=== PATIENT | male | born 1985 | race African-American/Black ===

== ENCOUNTER 2017-07-29 17:17 | Emergency (ER) | payer OTHER ==
[2017-07-29 17:24] VITALS: BP 132/67; PULSE 83; RESP 16; TEMP 97.5
--- NOTE | 2017-07-29 17:50 | ED ---
General Adult HPI - General Chief complaint: Extremity Problem,Nontraumatic Stated complaint: Ankle pain Time Seen by Provider: 07/29/17 17:29 Source: patient, RN notes reviewed, old records reviewed Mode of arrival: ambulatory Limitations: no limitations - History of Present Illness Initial comments: this patient is a 31-year-old male presents today she complaint of right ankle pain. Patient reports that he woke up with some pain and swelling in the right ankle. Denies any trauma that he is aware. He states that he is normally wearing tennis shoes. He states that he has had no previous injuries to this foot or ankle. Denies any peripheral paresthesias. She reports pain with inversion and eversion of the ankle. He states that he does not rub or any trauma or falls to cause the pain. No history of gout.Patient denies any recent fever, chills, shortness of breath, chest pain, back pain, abdominal pain , nausea vomiting, numbness or tingling, dysuria or hematuria, constipation or diarrhea, headaches or visual changes, or any other current symptoms - Related Data Home Medications Medication Instructions Recorded Confirmed Ranitidine HCl [Zantac] 300 mg PO DAILY PRN 07/29/17 07/29/17 Previous Rx's Medication Instructions Recorded Ibuprofen [Motrin] 600 mg PO Q8HR PRN #20 tab 07/29/17 Allergies Allergy/AdvReac Type Severity Reaction Status Date / Time No Known Allergies Allergy Verified 07/29/17 17:33 Review of Systems ROS Statement: Those systems with pertinent positive or pertinent negative responses have been documented in the HPI. ROS Other: All systems not noted in ROS Statement are negative. Past Medical History Past Medical History: No Reported History History of Any Multi-Drug Resistant Organisms: None Reported Past Surgical History: No Surgical Hx Reported Past Psychological History: No Psychological Hx Reported Smoking Status: Former smoker Past Alcohol Use History: None Reported Past Drug Use History: None Reported General Exam - General Exam Comments Initial Comments: 31-year-old male. No distress. Limitations: no limitations General appearance: alert Head exam: Present: atraumatic, normocephalic, normal inspection Eye exam: Present: normal appearance, PERRL, EOMI. Absent: scleral icterus, conjunctival injection, periorbital swelling ENT exam: Present: normal exam, mucous membranes moist Neck exam: Present: normal inspection. Absent: tenderness, meningismus, lymphadenopathy Respiratory exam: Present: normal lung sounds bilaterally. Absent: respiratory distress, wheezes, rales, rhonchi, stridor Cardiovascular Exam: Present: regular rate, normal rhythm, normal heart sounds. Absent: systolic murmur, diastolic murmur, rubs, gallop, clicks GI/Abdominal exam: Present: soft, normal bowel sounds. Absent: distended, tenderness, guarding, rebound, rigid Right Lower Leg exam: Present: normal inspection, full ROM Ankle exam: Present: normal inspection, full ROM, tenderness (over her medial and lateral malleolus.), swelling (minimal swelling.). Absent: abrasion, laceration, ecchymosis, crepitus, dislocation, erythema Foot/Toe exam: Present: normal inspection, full ROM Neurovascular tendon exam: Present: no vascular compromise Gait: observed and normal Back exam: Present: normal inspection Neurological exam: Present: alert, oriented X3, CN II-XII intact Psychiatric exam: Present: normal affect Course Vital Signs 07/29/17 17:23 Temperature 97.5 F L Pulse Rate 83 Respiratory 16 Rate Blood Pressure 132/67 O2 Sat by Pulse 98 Oximetry Medical Decision Making - Medical Decision Making this patient is a 31-year-old male presents today she complaint of right ankle pain. Patient reports that he woke up with some pain and swelling in the right ankle. Denies any trauma that he is aware. He states that he is normally wearing tennis shoes. He states that he has had no previous injuries to this foot or ankle.patient does have some tenderness to palpation over the ankle. No significant swelling or erythema is noted. Discussed possibility of gout. X -rays reviewed this time to show some diffuse or osteoarthritic changes. I'll put the patient on anti-inflammatory medication. Discussed following up with PCP. Patient understands treatment plan will comply. Return parameters were discussed. - Radiology Data Radiology results: report reviewed No fracture or dislocation. Osteoarthritic changes are present. Disposition Clinical Impression: Right ankle pain Disposition: HOME SELF-CARE Condition: Good Instructions: Arthralgia (ED) Additional Instructions: patient is to rest, ice, elevate the extremity. Take anti-inflammatory medication. Return to emergency department if any alarming signs or symptoms occur. Prescriptions: Ibuprofen [Motrin] 600 mg PO Q8HR PRN #20 tab PRN Reason: Pain Referrals: Zan Villalobos MD [Primary Care Provider] - 1-2 days Time of Disposition: 18:07
--- NOTE | 2017-07-29 18:05 | XR ---
Limited right ankle and right foot HISTORY: Right ankle and foot pain 2 views of the right ankle and 3 views of the right foot are submitted No comparisons Bone mineralization, joint spaces and alignment are maintained. Spurring is present at the tibiotalar joint, talonavicular joint. No evident ankle joint effusion. Some spurring and joint space loss pres ent at the first metatarsophalangeal joint. Small ossific density present dorsal and medial to the in terphalangeal joint of the first digit of the right foot. IMPRESSION: No fracture or dislocation. Osteoarthritic changes are present.
== END 2017-07-29 18:28 | disposition home or self-care (01) ==
LOC: EC 17:17
DX: M25.571 Pain in right ankle and joints of right foot (principal); Z87.891 Personal history of nicotine dependence
CPT/HCPCS: 99284

== ENCOUNTER 2017-10-18 15:59 | Emergency (ER) | payer OTHER ==
[2017-10-18] MEDS ORDERED: IBUPROFEN 600 MG TAB PO STA (16:32)
--- NOTE | 2017-10-18 17:05 | ED ---
General Adult HPI - General Chief complaint: Extremity Injury, Upper Stated complaint: Elbow Injury Time Seen by Provider: 10/18/17 16:30 Source: patient, RN notes reviewed Mode of arrival: ambulatory Limitations: no limitations - History of Present Illness Initial comments: 32-year-old male presents to the emergency department for a chief complaint of elbow pain times one day. Patient states he was at work last night when he hit his elbow on a metal bracket. Patient denies scratching or breaking the skin. Patient states he is having sharp pain from his elbow shooting down to his wrist. Patient is also having some tingling in the fingers. Patient has full sensation in the right extremity with light touch. Patient denies any pain in the hand or shoulder of the right extremity. Patient states he did ice the elbow last night but has not taken any ibuprofen. - Related Data Home Medications Medication Instructions Recorded Confirmed Ranitidine HCl [Zantac] 300 mg PO DAILY PRN 07/29/17 07/29/17 Previous Rx's Medication Instructions Recorded Ibuprofen [Motrin] 600 mg PO Q8HR PRN #20 tab 07/29/17 Allergies Allergy/AdvReac Type Severity Reaction Status Date / Time No Known Allergies Allergy Verified 10/18/17 16:09 Review of Systems ROS Statement: Those systems with pertinent positive or pertinent negative responses have been documented in the HPI. ROS Other: All systems not noted in ROS Statement are negative. Past Medical History Past Medical History: No Reported History History of Any Multi-Drug Resistant Organisms: None Reported Past Surgical History: No Surgical Hx Reported Past Psychological History: No Psychological Hx Reported Smoking Status: Current every day smoker Past Alcohol Use History: None Reported Past Drug Use History: None Reported General Exam Limitations: no limitations General appearance: alert, in no apparent distress Head exam: Present: atraumatic, normocephalic, normal inspection Respiratory exam: Present: normal lung sounds bilaterally. Absent: respiratory distress, wheezes, rales, rhonchi, stridor Cardiovascular Exam: Present: regular rate, normal rhythm, normal heart sounds. Absent: systolic murmur, diastolic murmur, rubs, gallop, clicks Extremities exam: Present: full ROM (Full range of motion of the right elbow and right wrist.), tenderness (Tenderness to the lateral condyle of the right elbow. No tenderness to the right wrist or anatomical snuffbox.), normal capillary refill (Refill less than 2 seconds in the right upper extremity.), other (Patient has full sensation of the right extremity on light touch. Patient also has full range of motion of the right extremity. Patient's interventionist strength on the right 4 out of 5.). Absent: joint swelling (No swelling noted of the right elbow or right wrist.) Course Vital Signs 10/18/17 16:06 Temperature 97.4 F L Pulse Rate 92 Respiratory 16 Rate Blood Pressure 167/79 O2 Sat by Pulse 98 Oximetry Medical Decision Making - Medical Decision Making 32-year-old male says the emergency department for chief complaint of elbow pain. Patient states he was at work when he hit his elbow on a metal bracket. Patient denies breaking the skin. Patient states he is having some tingling in the right upper extremity. Patient has full range of motion of the elbow and wrist on the right extremity. Patient has full sensation to light touch on the right upper extremity. Cap refill less than 2 seconds in the right upper extremity and radial pulse 2+. X-ray of the right wrist and elbow reveal no acute fractures or dislocations. Patient will be given the number for orthopedics to follow up if the pain continues. He can take ibuprofen for pain relief [id number], which she has at home. He was also instructed on resting icing and elevating the extremity. He was also told to keep the arm straight as much as possible as bending increases the tingling. Keeping it straight can cause less compression on the nerve due to the inflammation. Disposition Clinical Impression: Elbow pain, right Disposition: HOME SELF-CARE Condition: Good Instructions: RICE Therapy (ED), Elbow Sprain (ED) Additional Instructions: Please take ibuprofen for pain relief. Please rest, ice, and elevate the right elbow as much as possible. Please follow-up with orthopedics or primary care in 1-2 days Referrals: Zan Villalobos MD [Primary Care Provider] - 1-2 days Kanwal Viera PAC [PHYSICIAN FUELS ENGINEER] - 1-2 days Time of Disposition: 18:14
--- NOTE | 2017-10-18 18:04 | XR ---
EXAMINATION TYPE: XR wrist complete RT DATE OF EXAM: 10/18/2017 CLINICAL HISTORY: Right wrist pain after injury TECHNIQUE: Frontal, lateral and oblique images of the right wrist are obtained. Scaphoid view was al so obtained. COMPARISON: None FINDINGS: There is no acute fracture/dislocation evident in the right wrist. The joint spaces in th e right wrist appear within normal limits. The overlying soft tissue appears unremarkable. Well-carlito icated old fracture deformity of the ulnar styloid is seen. IMPRESSION: There is no acute fracture or dislocation in the right wrist.
--- NOTE | 2017-10-18 18:05 | XR ---
EXAMINATION TYPE: XR elbow complete RT DATE OF EXAM: 10/18/2017 CLINICAL HISTORY: Right elbow pain after injury TECHNIQUE: Frontal, lateral and oblique images of the right elbow are obtained. COMPARISON: None FINDINGS: There is no acute fracture/dislocation evident in the right elbow. No abnormal fat pad si gns are seen. The overlying soft tissue appears unremarkable. IMPRESSION: There is no acute fracture or dislocation in the right elbow.
[2017-10-18 18:13] VITALS: BP 123/81; PULSE 94; RESP 18; TEMP 97.6
== END 2017-10-18 18:18 | disposition home or self-care (01) ==
LOC: EC 15:59
DX: M25.521 Pain in right elbow (principal); M25.531 Pain in right wrist; R20.0 Anesthesia of skin; F17.200 Nicotine dependence, unspecified, uncomplicated; W22.8XXA Striking against or struck by other objects, initial encounter; Y99.0 Civilian activity done for income or pay; Y92.69 Other specified industrial and construction area as the place of occurrence of the external cause
CPT/HCPCS: 99283

== ENCOUNTER 2017-11-07 08:39 | Emergency (ER) | payer OTHER ==
[2017-11-07 08:48] VITALS: RESP 18
--- NOTE | 2017-11-07 08:59 | ED ---
General Adult HPI - General Chief complaint: Extremity Injury, Lower Stated complaint: rt foot injury Time Seen by Provider: 11/07/17 08:52 Source: patient, RN notes reviewed Mode of arrival: ambulatory Limitations: no limitations - History of Present Illness Initial comments: Patient 32-year-old male presenting to the emergency room today with a chief complaint of an injury to the right great toe. He states that he was wearing shoes and accidentally dropped a 50 pound weight. He states he saw it coming was trying to get his foot out awake. His admits to a abrasion over the distal aspect of the right great toe. He admits pain locally to this area. He denies any other complaints or symptoms. Patient denies any recent fever, chills, shortness of breath, chest pain, back pain, abdominal pain, nausea or vomiting, headaches or visual changes, or any other complaints. - Related Data Home Medications Medication Instructions Recorded Confirmed Ranitidine HCl [Zantac] 300 mg PO DAILY PRN 07/29/17 11/07/17 Previous Rx's Medication Instructions Recorded Ibuprofen [Motrin] 600 mg PO Q6HR PRN #40 day 11/07/17 Allergies Allergy/AdvReac Type Severity Reaction Status Date / Time No Known Allergies Allergy Verified 11/07/17 08:53 Review of Systems ROS Statement: Those systems with pertinent positive or pertinent negative responses have been documented in the HPI. ROS Other: All systems not noted in ROS Statement are negative. Past Medical History Past Medical History: No Reported History History of Any Multi-Drug Resistant Organisms: None Reported Past Surgical History: No Surgical Hx Reported Past Psychological History: No Psychological Hx Reported Smoking Status: Current every day smoker Past Alcohol Use History: None Reported Past Drug Use History: None Reported General Exam - General Exam Comments Initial Comments: General: The patient is awake and alert, in no distress, and does not appear acutely ill. Neck: The neck is supple Musculoskeletal: Patient does have small abrasion over the distal aspect of the right great toe. There is no active bleeding. Nailbed intact. No evidence for a subungual hematoma. Sensations intact. Pulses 2+. Patient shows good range of motion. Tender palpation distal aspect of the right great toe. No other bony tenderness on exam. Neurological: A&O x 3. CN II-XII intact, There are no obvious motor or sensory deficits. Coordination appears grossly intact. Speech is normal. Skin: Skin is warm and dry and no rashes or lesions are noted. Psychiatric: Normal mood and affect. Limitations: no limitations Course Vital Signs 11/07/17 08:44 Temperature 97.3 F L Pulse Rate 105 H Respiratory 18 Rate Blood Pressure 132/89 O2 Sat by Pulse 96 Oximetry Medical Decision Making - Medical Decision Making Patient's x-rays reviewed does show osteoarthritis of the MTP joint. Does show congenital or old injury. Patient no tenderness to the ankle only tender over the distal first digit of the right foot. Patient does have small abrasion has been cleaned by nursing staff in the emergency room. Patient refused a postop shoe states feels comfortable with scissors that he hasn't home. He is advised to ice elevate follow-up if symptoms are not improving over the next 7-10 days. Disposition Clinical Impression: Contusion of foot, right Disposition: HOME SELF-CARE Condition: Good Instructions: Foot Contusion (ED) Additional Instructions: Please continue to ice elevate the affected area. Please use ibuprofen for pain please follow-up in 7-10 days if symptoms are not improving. Please return to emergency room for any other concerns. Prescriptions: Ibuprofen [Motrin] 600 mg PO Q6HR PRN #40 day PRN Reason: Pain Is patient prescribed a controlled substance at d/c from ED?: No Referrals: Zan Villalobos MD [Primary Care Provider] - 1-2 days Time of Disposition: 09:48
--- NOTE | 2017-11-07 09:28 | XR ---
EXAMINATION TYPE: XR foot complete RT DATE OF EXAM: 11/07/2017 COMPARISON: 07/29/2017 HISTORY: 32-year-old male right foot pain after dropping weight on foot this morning TECHNIQUE: 3 views FINDINGS: Mild degenerative change at the first MTP joint with marginal spurring. There is corticated ossific f ragment along the dorsal medial aspect of the talonavicular joint which was present on prior exam as well. No acute fracture, subluxation, or dislocation. IMPRESSION: 1. Bone fragment along the dorsomedial aspect of the talonavicular joint could represent congenital v ariation with an os supranaviculare or sequela of remote injury. Mild first MTP joint OA. 2. No acute osseous abnormality seen.
[2017-11-07 10:20] VITALS: BP 132/78; PULSE 98; TEMP 97.5
== END 2017-11-07 10:18 | disposition home or self-care (01) ==
LOC: EC 08:39
DX: S90.31XA Contusion of right foot, initial encounter (principal); S90.411A Abrasion, right great toe, initial encounter; F17.200 Nicotine dependence, unspecified, uncomplicated; Z53.29 Procedure and treatment not carried out because of patient's decision for other reasons; W20.8XXA Other cause of strike by thrown, projected or falling object, initial encounter; Y92.009 Unspecified place in unspecified non-institutional (private) residence as the place of occurrence of the external cause
CPT/HCPCS: 99283

== ENCOUNTER 2018-10-02 02:44 | Emergency (ER) | payer OTHER ==
[2018-10-02 02:53] VITALS: BP 143/91; PULSE 94; RESP 18; TEMP 98.3
[2018-10-02] MEDS ORDERED: ACETAMINOPHEN TAB 500 MG TAB PO STA (03:09)
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
== END 2018-10-02 04:20 | disposition home or self-care (01) ==
LOC: EC 02:44
DX: S00.83XA Contusion of other part of head, initial encounter (principal); F17.200 Nicotine dependence, unspecified, uncomplicated; Z91.013 Allergy to seafood; Y00.XXXA Assault by blunt object, initial encounter; Y92.009 Unspecified place in unspecified non-institutional (private) residence as the place of occurrence of the external cause
CPT/HCPCS: 70486; 99283

== ENCOUNTER 2018-10-22 14:40 | Emergency (ER) | payer OTHER ==
[2018-10-22 14:52] VITALS: RESP 18; TEMP 98.2
[2018-10-22] MEDS ORDERED: predniSONE 50 MG TAB PO STA ×2 (15:32→15:48)
[2018-10-22] MEDS ORDERED: methylPREDNISolone SOD SUCCI 125 MG/2 ML VIAL IV STA (15:37)
[2018-10-22] MEDS ORDERED: FAMOTIDINE 20 MG/2 ML VIAL IV STA (15:37)
[2018-10-22] MEDS ORDERED: diphenhydrAMINE 50 MG/ML 1 ML VIAL IVP STA (15:37)
[2018-10-22] MEDS ORDERED: SODIUM CHLORIDE 0.9% 500 ML 500 ML IV STA (15:37)
--- NOTE | 2018-10-22 15:44 | ED ---
General Adult HPI - General Chief complaint: Fall Stated complaint: Ankle injury Time Seen by Provider: 10/22/18 15:13 Source: patient, RN notes reviewed, old records reviewed Mode of arrival: ambulatory Limitations: no limitations - History of Present Illness Initial comments: 33-year-old male patient with no pertinent past medical history presents ED aft er sustaining a fall, ankle injury. Patient ports that he was standing on a chair when the chair slipped and he fell backwards, hitting the plantar aspect of the chair of his lumbar spine and injuring both his ankles. Patient reports that this occurred around 10:30 AM. Patient reports that he has been ambulatory, however has pain in his ankles bilaterally as well as his lower back. Patient ports they took some Tylenol Extra Strength immediately after fall, patient reports that he feels that he experienced some tongue swelling transiently after taking this medication. Patient states that this resolves within approximately 5 minutes. Patient denies any other complaints. Denies any hives, nausea vomiting diarrhea, abdominal pain. Patient does not have a history of ALLERGIC reactions. Patient is currently in no respiratory distress, no angioedema noted. Systemic: Pt denies fatigue, myalgia, fever/chills, rash. Pt denies weakness, night sweats, weight loss. Neuro: Pt denies headache, visual disturbances, syncope or pre-syncope. HEENT: Pt denies ocular discharge or irritation, otalgia, rhinorrhea, pharyngitis or notable lymphadenopathy. Cardiopulmonary: Pt denies chest pain, SOB, heart palpitations, dyspnea on exertion. Abdominal/GI: Pt denies abdominal pain, n/v/d. : Pt denies dysuria, burning w/ urination, frequency/urgency. Denies new onset urinary or bowel incontinence. MSK: Pt denies myalgia, loss of strength or function in extremities. Neuro: Pt denies new onset weakness, paresthesias. - Related Data Home Medications Medication Instructions Recorded Confirmed Ranitidine HCl [Zantac] 300 mg PO DAILY PRN 07/29/17 11/07/17 Previous Rx's Medication Instructions Recorded Ibuprofen [Motrin] 600 mg PO Q6HR PRN #40 day 11/07/17 EPINEPHrine [Epipen 2-Ozzie] 0.3 mg IM ONCE PRN #1 pack 10/22/18 predniSONE 50 mg PO DAILY #4 tab 10/22/18 Allergies Allergy/AdvReac Type Severity Reaction Status Date / Time seafood Allergy Swelling Uncoded 10/22/18 14:52 Review of Systems ROS Statement: Those systems with pertinent positive or pertinent negative responses have been documented in the HPI. ROS Other: All systems not noted in ROS Statement are negative. Past Medical History Past Medical History: No Reported History History of Any Multi-Drug Resistant Organisms: None Reported Past Surgical History: No Surgical Hx Reported Past Psychological History: No Psychological Hx Reported Smoking Status: Current every day smoker Past Alcohol Use History: None Reported Past Drug Use History: None Reported General Exam - General Exam Comments Initial Comments: Constitutional: NAD, AOX3, Pt has pleasant affect. HEENT: NC/AT, trachea midline, neck supple, no lymphadenopathy. Posterior pharynx non erythematous, without exudates. External ears appear normal, without discharge. Mucous membranes moist. Eyes PERRLA, EOM intact. There is no scleral icterus. No pallor noted. No angioedema. Cardiopulmonary: RRR, no murmurs, rubs or gallops, no JVD noted. Lungs CTAB in anterior and posterior marcos. No peripheral edema. Abdominal exam: Abdomen soft and non-distended. Abdomen non-tender to palpation in all 4 quadrants. Bowel sounds active in LLQ. No hepatosplenomegaly. No ecchymosis Neuro: CN II-XII grossly intact. No nuchal rigidity. MSK: Left middle malleolus mildly tender to palpation bilaterally. Lateral distal fibula mildly tender to palpation. Patient able to bear weight with antalgic gait. Left paralumbar region mildly tender to palpation. 5 out of 5 strength quadriceps psoas muscles bilaterally. Patellar and Achilles tendon reflex 2 out of 4 bilaterally. No posterior calf tenderness bilaterally, homans sign negative bilaterally. Posterior tibialis and radial pulse +2 bilaterally. Sensation intact in upper and lower extremities. Full active ROM in upper and lower extremities, 5/5 stregnth. Limitations: no limitations Course Vital Signs 10/22/18 14:49 Temperature 98.2 F Pulse Rate 89 Respiratory 18 Rate Blood Pressure 140/90 O2 Sat by Pulse 97 Oximetry Medical Decision Making - Medical Decision Making 33-year-old male patient with no pertinent past medical history presents ED after sustaining a fall, ankle injury. Patient ports that he was standing on a chair when the chair slipped and he fell backwards, hitting the plantar aspect of the chair of his lumbar spine and injuring both his ankles. Patient reports that this occurred around 10:30 AM. Patient reports that he has been ambulatory, however has pain in his ankles bilaterally as well as his lower back. Patient ports they took some Tylenol Extra Strength immediately after fall, patient reports that he feels that he experienced some tongue swelling transiently after taking this medication. Patient states that this resolves within approximately 5 minutes. Patient denies any other complaints. Denies any hives, nausea vomiting diarrhea, abdominal pain. Patient does not have a history of ALLERGIC reactions. Patient is currently in no respiratory distress, no angioedema noted. Pt VSS, afebrile. Physical exam displayed: Left middle malleolus mildly tender to palpation bilaterally. Lateral distal fibula mildly tender to palpation. Patient able to bear weight with antalgic gait. Left paralumbar region mildly tender to palpation. 5 out of 5 strength quadriceps psoas muscles bilaterally. Patellar and Achilles tendon reflex 2 out of 4 bilaterally. Plain film of right tibia/fibula, lumbar spine, foot and ankle bilaterally did not display any acute process. Patient diagnosis ankle sprain, possible ALLERGIC reaction. Patient to be prescribed 4 days of prednisone for ALLERGIC reaction. Patient will follow up with primary care physician one to days for repeat evaluation. Mihai wrap placed and ankles bilaterally. Patient also provided orthopedic consult for further evaluation symptoms continue. Patient return to ER if condition worsens in any way. Case discussed with Dr. Reed. Disposition Clinical Impression: Fall, Ankle sprain, Allergic reaction caused by a drug Disposition: HOME SELF-CARE Condition: Stable Instructions (If sedation given, give patient instructions): Ankle Sprain (ED), General Allergic Reaction (ED) Additional Instructions: Patient to adhere to previously discussed treatment plan and will take medication(s) as directed. Patient to follow up with PCP in 1-2 days. Patient to return to ED if symptoms do not improve. Please follow-up with primary care provider in 1-2 days. Please return to ER if condition worsens in anyway. Please do not take Tylenol. Please take prednisone for 4 days. Please follow-up with orthopedic consult if symptoms persist. Prescriptions: EPINEPHrine [Epipen 2-Ozzie] 0.3 mg IM ONCE PRN #1 pack PRN Reason: Anaphylaxis predniSONE 50 mg PO DAILY #4 tab Is patient prescribed a controlled substance at d/c from ED?: No Referrals: Zan Villalobos MD [Primary Care Provider] - 1-2 days Kanwal Viera PAC [PHYSICIAN [employer]SERVATION SCIENCE TEACHER] - 1-2 days
[2018-10-22] MEDS ORDERED: FAMOTIDINE 20 MG TAB PO STA (15:48)
[2018-10-22] MEDS ORDERED: diphenhydrAMINE 50 MG CAP PO STA (15:48)
--- NOTE | 2018-10-22 16:47 | XR ---
Right leg HISTORY: Trauma and pain 2 views of the right leg on 3 images Bone mineralization, joint spaces and alignment are maintained. IMPRESSION: No fracture or dislocation.
--- NOTE | 2018-10-22 16:49 | XR ---
Bilateral ankles and bilateral feet HISTORY: Trauma and pain 3 views of each foot, 3 views of each ankle submitted on a total of 12 images. Small ossific density present at the interphalangeal level of the first digit is well-corticated and not felt likely to be acute at the right first digit. Degenerative changes are present at the interta rsal joints. Mild soft tissue swelling at the ankle joints. Bone mineralization, joint spaces and ali gnment are maintained. IMPRESSION: No evident fracture or dislocation of either foot or ankle.
--- NOTE | 2018-10-22 16:51 | XR ---
Lumbar spine HISTORY: Trauma and pain 3 views of the lumbar spine Bone mineralization, joint spaces and alignment are maintained. Lumbar vertebral bodies show preserve d height. Disc spaces are normal. IMPRESSION: No acute fracture or subluxation. Follow-up as indicated.
[2018-10-22 17:59] VITALS: BP 139/79; PULSE 79
== END 2018-10-22 17:34 | disposition home or self-care (01) ==
LOC: EC 14:40
DX: S93.401A Sprain of unspecified ligament of right ankle, initial encounter (principal); S93.402A Sprain of unspecified ligament of left ankle, initial encounter; T50.905A Adverse effect of unspecified drugs, medicaments and biological substances, initial encounter; F17.200 Nicotine dependence, unspecified, uncomplicated; Z91.013 Allergy to seafood; W01.0XXA Fall on same level from slipping, tripping and stumbling without subsequent striking against object, initial encounter
CPT/HCPCS: 73610; 73630; 72100; 73590; 99284; J7512

== ENCOUNTER 2019-06-14 11:45 | Emergency (ER) | payer OTHER ==
[2019-06-14 12:00] VITALS: TEMP 97.5
--- NOTE | 2019-06-14 12:04 | ED ---
General Adult HPI - General Chief complaint: Abdominal Pain Stated complaint: Flank pain Time Seen by Provider: 06/14/19 12:02 Source: patient Mode of arrival: ambulatory Limitations: no limitations - History of Present Illness Initial comments: Patient presents the ED with his for evaluation. Patient states that he has had left sided abdominal/flank/lower back pain, nausea and vomiting since this morning. Patient states that he has a history of renal stones. Patient denies trauma or injury, fever or chills, headache, chest pain, dyspnea, di zziness, hematemesis, diarrhea or constipation, bloody or melanotic stool, dysuria, hematuria, urinary frequency, urinary symptoms, or any other symptoms or complaints. Patient denies taking any medications today. - Related Data Home Medications Medication Instructions Recorded Confirmed Ranitidine HCl [Zantac] 300 mg PO DAILY PRN 07/29/17 11/07/17 Previous Rx's Medication Instructions Recorded Ibuprofen [Motrin] 600 mg PO Q6HR PRN #40 day 11/07/17 EPINEPHrine [Epipen 2-Ozzie] 0.3 mg IM ONCE PRN #1 pack 10/22/18 predniSONE 50 mg PO DAILY #4 tab 10/22/18 Allergies Allergy/AdvReac Type Severity Reaction Status Date / Time acetaminophen [From Tylenol] Allergy Abdominal Verified 10/22/18 17:22 Pain Review of Systems ROS Statement: Those systems with pertinent positive or pertinent negative responses have been documented in the HPI. ROS Other: All systems not noted in ROS Statement are negative. Past Medical History Additional Past Medical History / Comment(s): renal stones History of Any Multi-Drug Resistant Organisms: None Reported Past Surgical History: No Surgical Hx Reported Additional Past Surgical History / Comment(s): ankle surgery Past Psychological History: No Psychological Hx Reported Smoking Status: Former smoker Past Alcohol Use History: None Reported Past Drug Use History: None Reported General Exam Limitations: no limitations General appearance: alert Head exam: Present: atraumatic, normocephalic Eye exam: Present: normal appearance, EOMI ENT exam: Present: mucous membranes moist Neck exam: Present: other (Trachea is in midline) Respiratory exam: Present: normal lung sounds bilaterally. Absent: respiratory distress, wheezes, rales, rhonchi Cardiovascular Exam: Present: regular rate, normal rhythm, normal heart sounds, other (Normal radial pulses bilaterally) GI/Abdominal exam: Present: soft, other (Mild left lower quadrant and left flank tenderness). Absent: distended, guarding, rebound Extremities exam: Absent: pedal edema Back exam: Present: other (Mild left CVA tenderness). Absent: CVA tenderness (R) Neurological exam: Present: alert, oriented X3. Absent: motor sensory deficit Psychiatric exam: Present: normal affect, normal mood Skin exam: Present: warm, dry, intact, normal color Course Vital Signs 06/14/19 11:58 Temperature 97.5 F L Pulse Rate 66 Respiratory 18 Rate Blood Pressure 128/82 O2 Sat by Pulse 97 Oximetry - Reevaluation(s) Reevaluation #1: 06/14/19 14:56 Patient states that his pain and nausea have now improved significantly. Patient denies development of any new symptoms while in the ED. Patient and are aware of the patient's test results, and patient feels comfortable going home with his at this time. Patient was counseled about ureteral stones, and he was instructed to follow up closely with a urologist. Patient was clearly explained return and follow-up instructions. Medical Decision Making - Medical Decision Making Patient has an obstructing left ureteral stone without any evidence of complication. Patient is afebrile and without leukocytosis. Patient does not appear to have a UTI. Patient's symptoms are under control at this time. - Lab Data Result diagrams: 06/14/19 12:30 06/14/19 12:30 Lab Results 06/14/19 06/14/19 06/14/19 Range/Units 12:30 12:30 13:55 WBC 8.1 (3.8-10.6) k/uL RBC 5.45 (4.30-5.90) m/uL Hgb 15.4 (13.0-17.5) gm/dL Hct 47.0 (39.0-53.0) % MCV 86.3 (80.0-100.0) fL MCH 28.3 (25.0-35.0) pg MCHC 32.8 (31.0-37.0) g/dL RDW 12.7 (11.5-15.5) % Plt Count 242 (150-450) k/uL Neutrophils % 74 % Lymphocytes % 17 % Monocytes % 7 % Eosinophils % 1 % Basophils % 0 % Neutrophils # 6.0 (1.3-7.7) k/uL Lymphocytes # 1.4 (1.0-4.8) k/uL Monocytes # 0.5 (0-1.0) k/uL Eosinophils # 0.1 (0-0.7) k/uL Basophils # 0.0 (0-0.2) k/uL Sodium 141 (137-145) mmol/L Potassium 4.3 (3.5-5.1) mmol/L Chloride 109 H (98-107) mmol/L Carbon Dioxide 24 (22-30) mmol/L Anion Gap 8 mmol/L BUN 14 (9-20) mg/dL Creatinine 1.17 (0.66-1.25) mg/dL Est GFR (CKD-EPI)AfAm >90 (>60 ml/min/1.73 sqM) Est GFR (CKD-EPI)NonAf 81 (>60 ml/min/1.73 sqM) Glucose 130 H (74-99) mg/dL Calcium 9.1 (8.4-10.2) mg/dL Total Bilirubin 0.5 (0.2-1.3) mg/dL AST 48 (17-59) U/L ALT 69 (21-72) U/L Alkaline Phosphatase 90 (38-126) U/L Total Protein 7.3 (6.3-8.2) g/dL Albumin 4.2 (3.5-5.0) g/dL Lipase 45 (23-300) U/L Urine Color Yellow Urine Appearance Clear (Clear) Urine pH 6.5 (5.0-8.0) Ur Specific [place] 1.014 (1.001-1.035) Urine Protein Trace H (Negative) Urine Glucose (UA) Negative (Negative) Urine Ketones Negative (Negative) Urine Blood Large H (Negative) Urine Nitrite Negative (Negative) Urine Bilirubin Negative (Negative) Urine Urobilinogen <2.0 (<2.0) mg/dL Ur Leukocyte Esterase Negative (Negative) Urine RBC >182 H (0-5) /hpf Urine WBC 6 H (0-5) /hpf Urine Mucus Many H (None) /hpf - Radiology Data Radiology results: report reviewed (CT abdomen/pelvis shows a 5 mm, obstructing, distal left ureteral stone with mild to moderate hydronephrosis) Disposition Clinical Impression: Ureteral stone with hydronephrosis Disposition: HOME SELF-CARE Condition: Stable Instructions (If sedation given, give patient instructions): Ureteral Stones (ED), Renal Colic (ED) Additional Instructions: Return to the ER immediately should you develop new or worsening pain, pe rsistent vomiting, a fever, shortness of breath, feeling dizzy or faint, or near worsening symptoms. Is patient prescribed a controlled substance at d/c from ED?: No Referrals: Zan Villalobos MD [Primary Care Provider] - 1-2 days Tommy Martel MD [STAFF PHYSICIAN] - 1-2 days Time of Disposition: 14:57
[2019-06-14] MEDS ORDERED: SODIUM CHLORIDE 0.9% 1,000 ML IV STA (12:08)
[2019-06-14] MEDS ORDERED: HYDROmorphone 1 MG/ML 1 ML SYRINGE IVP STA (12:08)
[2019-06-14] MEDS ORDERED: ONDANSETRON 4 MG/2 ML VIAL IVP STA (12:09)
[2019-06-14 12:52] LABS: Basophils % (A) 0 %; Eosinophils # (A) 0.1 k/uL (0-0.7); Eosinophils % (A) 1 %; HGB 15.4 gm/dL (13.0-17.5); Lymphocytes # (A) 1.4 k/uL (1.0-4.8); Lymphocytes % (A) 17 %; MCH 28.3 pg (25.0-35.0); MCHC 32.8 g/dL (31.0-37.0); MCV 86.3 fL (80.0-100.0); Mean Platelet Volume 6.3; Monocytes # (A) 0.5 k/uL (0-1.0); Monocytes % (A) 7 %; Neutrophils % (A) 74 %; Platelet Count 242 k/uL (150-450); RBC 5.45 m/uL (4.30-5.90); RDW 12.7 % (11.5-15.5); WBC 8.1 k/uL (3.8-10.6)
[2019-06-14 13:02] LABS: ALT 69 U/L (21-72); AST 48 U/L (17-59); African American GFR (CKD) >90 (>60 ml/min/1.73 sqM); Albumin 4.2 g/dL (3.5-5.0); Alkaline Phosphatase 90 U/L (38-126); Anion Gap 8 mmol/L; Blood Urea Nitrogen 14 mg/dL (9-20); Calcium 9.1 mg/dL (8.4-10.2); Carbon Dioxide 24 mmol/L (22-30); Chloride 109 mmol/L (98-107); Glucose 130 mg/dL (74-99); Non-African American GFR(CKD) 81 (>60 ml/min/1.73 sqM); Potassium 4.3 mmol/L (3.5-5.1); Sodium 141 mmol/L (137-145); Total Bilirubin 0.5 mg/dL (0.2-1.3); Total Protein 7.3 g/dL (6.3-8.2)
--- NOTE | 2019-06-14 13:20 | CT ---
EXAMINATION TYPE: CT abdomen pelvis wo con DATE OF EXAM: 06/14/2019 HISTORY: Left flank pain, nausea, vomiting CT DLP: 1289.4 mGycm. Automated Exposure Control for Dose Reduction was Utilized. TECHNIQUE: CT scan of the abdomen and pelvis is performed without oral or IV contrast. COMPARISON: NONE FINDINGS: Within the limitations of a non-contrast study, the following observations are made. LUNG BASES: No significant abnormality is appreciated. LIVER/GB: Liver is diffusely low dense consistent with fatty infiltration. PANCREAS: No significant abnormality is seen. SPLEEN: No significant abnormality is seen. ADRENALS: No significant abnormality is seen. KIDNEYS: There is 2 mm calculus right kidney mid to lower pole level anteriorly axial image 60. No ri ght-sided hydronephrosis or obstructing urinary calculi. No left-sided renal calculi but there is 5 m m distal left ureter calculus axial image 121 causing mild to moderate left-sided hydronephrosis and proximal hydroureter. No intraluminal calculus in poorly distended bladder. BOWEL: No significant abnormality is seen. GENITAL ORGANS: Normal sized prostate. Adjacent pelvic phleboliths. LYMPH NODES: No greater than 1cm abdominal or pelvic lymph nodes are appreciated. OSSEOUS STRUCTURES: Focal right paracentral disc protrusion L4-L5 level effaces anterolateral thecal sac axial image 89. OTHER: No significant additional abnormality is seen. IMPRESSION: There is obstructing 5 mm distal left ureter calculus causing [id number] left-sided hydronephrosis.
[2019-06-14 14:18] LABS: Appearance,Urine Clear (Clear); Bilirubin,Urine Negative (Negative); Blood,Urine Large (Negative); Color,Urine Yellow; Glucose,Urine (UA) Negative (Negative); Ketones,Urine Negative (Negative); Leukocyte Esterase,Urine Negative (Negative); Mucus,Urine Many /hpf; Nitrite,Urine Negative (Negative); PH, Urine 6.5 (5.0-8.0); Protein,Urine Trace (Negative); RBC,Urine >182 /hpf (0-5); Specific Gravity,Urine 1.014 (1.001-1.035); Urobilinogen,Urine <2.0 mg/dL (<2.0)
[2019-06-14] MEDS ORDERED: ACET/COD 300 MG/30 MG STARTER PACK 6 TAB BTL PO STA (14:55)
[2019-06-14 15:25] VITALS: BP 132/76; PULSE 76; RESP 16
== END 2019-06-14 15:25 | disposition home or self-care (01) ==
LOC: EC 11:45
DX: N13.2 Hydronephrosis with renal and ureteral calculous obstruction (principal); Z87.891 Personal history of nicotine dependence; Z88.6 Allergy status to analgesic agent
CPT/HCPCS: 36415; 80053; 83690; 85025; 81001; 74176; 99284; 96374; 96375; 96361 ×3; J2405; J1170